=== PATIENT | female | born 1935 | race Caucasian/White ===

== ENCOUNTER 2017-07-18 08:57 | Emergency (ER) | payer OTHER ==
[2017-07-18] MEDS ORDERED: NS 500 ML IV ONE (09:42)
--- NOTE | 2017-07-18 09:42 | EDPHY ---
HPI/HX/ROS/PE/MDM - Data Points Imaging: Discussed imaging studies w/ call center professional Radiologist Narrative: CHIEF COMPLAINT: Fall HISTORY OF PRESENT ILLNESS: This patient is a non-anticoagulated 81 year old female with history of Alzheimer's arriving via EMS from [facility] for evaluation of an unwitnessed fall with possible loss of consciousness, found this morning around 8:30am. She does nor remember her fall or any precipitating factors. Her pony trimmer at bedside states that when staff called her for breakfast, they found her on the floor in the bathroom, awake. The patient was fatigued yesterday and wanted to nap, but this is normal for her. Her pony trimmer states she has had a little trouble ambulating over the last 1.5 weeks. She generally walks with a cane. The patient endorses a headache. No numbness tingling, weakness in arms or legs. No vomiting, diarrhea, chills, cough ,fever , abdominal pain, chest pain, shortness of breath. She denies history of UTIs. Her pony trimmer does not note any cognitive deficits beyond the ordinary. HPI partially obtained from pony trimmer at bedside. REVIEW OF SYSTEMS: Obtained from patient, she has a history of dementia. Negative other than headache. PAST MEDICAL HISTORY: Dementia, Diabetes type II, GERD, Hypertension, history of c-difficile. 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 VITAL SIGNS: Reviewed by me GENERAL: Well-developed, well-nourished, resting comfortably in no respiratory distress. HEENT: 2cm linear vertical laceration to right forehead. Eyes: No icterus, no injection. Mouth: moist mucous membranes. No erythema or lesions. Neck: Low c- spine tenderness. LUNGS: Clear to auscultation bilaterally, no wheezes, rhonchi or rales. CARDIAC: Regular rate and rhythm, no rubs, murmurs or gallops. ABDOMEN: Soft, nontender, nondistended, bowel sounds normal. BACK: No CVA tenderness. EXTREMITIES: No trauma. No edema. Range of motion is normal throughout. NEURO: Alert and oriented, CN 2-12 intact, motor normal, sensory normal. SKIN: Warm and dry, no rash. PSYCHIATRIC: Normal mentation, no agitation. (Beth Benson) ED Course: Patient will be placed in a c-collar. Plan for CT head and cervical spine. Plan for labs including CBC, BMP, Troponin, and UA. 10:[address] Mccoy, radiologist. No acute findings noted on CT head or cervical spine. Plan to repair laceration. See procedure note by Namita Ellington PA-C. UA shows evidence of urinary tract infection. Plan to discharge home in good condition with prescription for Keflex. (Beth Benson) MDM: Procedure: Laceration repair with tissue adhesive Verbal consent was obtained from the patient. The 3 cm laceration on the frontal region. The wound was scrubbed and explored to its base with a gloved finger. No foreign body seen, no foreign bodies palpated. There were no deep structures involved. The wound was repaired with tissue adhesive. The procedure was performed by myself. Patient has been informed that scarring will occur, although every effort has been made to minimize this. Patient developed nausea after smelling the derma lima and was subsequently given Zofran (Alex Ellington) - Data Points Laboratory Results: Laboratory Results 07/18/17 10:10 07/18/17 04:49 Medications Given: Discontinued Medications Cephalexin HCl (Keflex) 500 mg PO EDNOW ONE PRN Reason: Protocol Stop: 07/18/17 12:43 Last Admin: 07/18/17 13:00 Dose: 500 mg Sodium Chloride (Ns) 500 mls @ 1,000 mls/hr IV EDNOW ONE PRN Reason: Protocol Stop: 07/18/17 10:11 Last Admin: 07/18/17 10:15 Dose: 500 mls Ondansetron HCl (Zofran) 4 mg IVP EDNOW ONE Stop: 07/18/17 12:10 Last Admin: 07/18/17 12:28 Dose: Not Given General Time Seen by Provider: 07/18/17 09:23 Initial Vital Signs: Initial Vital Signs Temperature (C) 36.7 C 07/18/17 09:00 Heart Rate 82 07/18/17 09:00 Respiratory Rate 16 07/18/17 09:00 Blood Pressure 182/104 H 07/18/17 09:00 O2 Sat (%) 97 07/18/17 09:00 O2 Delivery Mode Room Air Allergies/Adverse Reactions: No Known Allergies Allergy (Unverified 07/18/17 09:20) Home Medications: Medication Instructions Recorded Anastrozole 07/18/17 Aspirin 81mg (*) 07/18/17 Cephalexin [Keflex (RX)] 500 mg PO TID 6 Days cap 07/18/17 Docusate Sodium 07/18/17 Losartan Potassium 07/18/17 Metformin HCl 07/18/17 Omeprazole 07/18/17 Vitamin D3 07/18/17 celeCOXIB 07/18/17 Departure - Departure Disposition: Home, Routine, Self-Care Clinical Impression: Laceration Urinary tract infection Qualifiers: Urinary tract infection type: acute cystitis Hematuria presence: without hematuria Qualified Code(s): N30.00 - Acute cystitis without hematuria Condition: Good Instructions: Laceration (ED), Skin Adhesive Care (ED), Urinary Traction Infection in Older Adults (ED) Additional Instructions: Please take antibiotics as directed. Do not put antibiotic cream on the laceration on her forehead. That will dissolve the skin glue. The skin glue will come off on its own after several days. Please follow the directions for skin adhesive care. Okay to use Tylenol or ibuprofen as needed for headache or neck pain. Referrals: Patient,NotPresent [Unknown] - As per Instructions Rois Subramanian MD [Medical Doctor] - As per Instructions Prescriptions: Cephalexin [Keflex (RX)] 500 mg PO TID 6 Days cap Report Scribed for: Beth Benson Report Scribed by: Yeimy Butts Date of Report: 07/18/17 Time of Report: 12:38 Physician Review and Approval Statement: Portions of this note were transcribed by a ophthalmic medical assistant. I personally performed a history, physical exam, medical decision making, and confirmed accuracy of information the transcribed note.
--- NOTE | 2017-07-18 10:09 | CPEKG ---
Heart Rate: 82 RR Interval: 732 P-R Interval: 156 QRSD Interval: 132 QT Interval: 416 QTC Interval: 486 P [place]: 55 QRS [place]: -30 T Wave [place]: 106 EKG Severity - ABNORMAL ECG - EKG Impression: SINUS RHYTHM EKG Impression: PROBABLE LEFT ATRIAL ABNORMALITY EKG Impression: LEFT BUNDLE BRANCH BLOCK Electronically Signed By: Beth Benson 18-Jul-2017 15:51:49
[2017-07-18 10:21] LABS: % IMMATURE GRANULYOCYTES 0.2 % (0.0-1.1); ABSOLUTE IMMATURE GRANULOCYTES 0.02 10^3/uL (0.00-0.10); ADD DIFF? NO; ADD MORPH? NO; ADD SCAN? NO; ATYPICAL LYMPHOCYTE FLAG 0 (0-99); FRAGMENT RBC FLAG 0 (0-99); HEMATOCRIT 42.8 % (38.0-47.0); HEMOGLOBIN 14.5 g/dL (12.6-16.3); LEFT SHIFT FLG 0 (0-99); LIPEMIA HEMOLYSIS FLAG 90 (0-99); MEAN CELL HEMOGLOBIN 30.9 pg (27.9-34.1); MEAN CELL HEMOGLOBIN CONCENTR. 33.9 g/dL (32.4-36.7); MEAN CELL VOLUME 91.1 fL (81.5-99.8); MEAN PLATELET VOLUME 10.3 fL (8.7-11.7); PLATELET CLUMPS FLAG 0 (0-99); PLATELET COUNT 182 10^3/uL (150-400)
[2017-07-18 10:36] LABS: ANION GAP 16 mEq/L (8-16); CALCIUM 10.2 mg/dL (8.5-10.4); CARBON DIOXIDE 22 mEq/l (22-31); CHLORIDE 105 mEq/L (97-110); CREATININE 0.9 mg/dL (0.6-1.0); GLOMERULAR FILTRATION RATE 60; GLUCOSE 156 mg/dL (70-100); SODIUM 143 mEq/L (134-144)
[2017-07-18 10:48] LABS: TROPONIN I < 0.012 ng/mL (0.000-0.034)
[2017-07-18 11:44] LABS: COLOR YELLOW; LEUKOCYTE ESTERASE,URINE TRACE (NEGATIVE); NITRITE,URINE POSITIVE (NEGATIVE)
[2017-07-18 11:51] LABS: BACTERIA 1+ /hpf (NONE SEEN); WBC,URINE 15-25 /hpf (0-3)
[2017-07-18 11:53] VITALS: BP 177/97; RESP 18; TEMP 97.5
[2017-07-18] MEDS ORDERED: SKIN ADHESIVE (DERMABOND) 1 EACH TP ONE (12:04)
[2017-07-18] MEDS ORDERED: ONDANSETRON 4 MG/2 ML VIAL IVP ONE (12:09)
[2017-07-18] MEDS ORDERED: CEPHALEXIN 500 MG CAP PO ONE (12:42)
[2017-07-18 13:17] VITALS: PULSE 90; O2SAT 97
== END 2017-07-18 13:17 | disposition home or self-care (01) ==
PROC: 0HQ1XZZ Repair Face Skin, External Approach (ICD-10-PCS; principal; 2017-07-18)
DX: S01.81XA Laceration without foreign body of other part of head, initial encounter (principal); W18.30XA Fall on same level, unspecified, initial encounter; Y92.002 Bathroom of unspecified non-institutional (private) residence as the place of occurrence of the external cause; Y99.8 Other external cause status; N30.00 Acute cystitis without hematuria; E11.9 Type 2 diabetes mellitus without complications; I10 Essential (primary) hypertension; E86.9 Volume depletion, unspecified; B96.20 Unspecified Escherichia coli [E. coli] as the cause of diseases classified elsewhere; Z79.82 Long term (current) use of aspirin; Z79.84 Long term (current) use of oral hypoglycemic drugs
CPT/HCPCS: J2405

== ENCOUNTER 2017-08-20 10:21 | Emergency (ER) | payer OTHER ==
[2017-08-20 10:35] VITALS: TEMP 97.5
--- NOTE | 2017-08-20 10:58 | EDPHY ---
H & P Stated Complaint: fall, found down Time Seen by Provider: 08/20/17 10:56 HPI/ROS: CHIEF COMPLAINT: Fall, found down HISTORY OF PRESENT ILLNESS: This patient is a non-anticoagulated 81 y/o female with history of dementia arriving via EMS [place] [facility] [place] being found down with abrasions to her right side of her face. Per EMS report, the time of her fall is unknown, unknown loss of consciousness. She knows her name at baseline, but is generally not oriented to place or time. The patient is not sure what happened or how she arrived here. She denies headache, but states she "hurts all over". She endorses generalized weakness. No recent illness. REVIEW OF SYSTEMS: A 10 point review of systems was completed, is limited due to the patient's dementia. - Medical/Surgical History PMH: 1. Dementia 2. History of cancer (left mastectomy, oral chemotherapy) 3. Type II Diabetes Mellitus 4. Hypertension 5. GERD 6. 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 Nonsmoker. - Physical Exam Exam: General Appearance: Alert, pleasant, well-appearing Head: Abrasion and contusion to the right forehead and underneath right eye. Eyes: Pupils equal and round, no conjunctival pallor or injection ENT, Mouth: Mucous membranes moist Neck: Normal inspection, nontender, range of motion without pain Respiratory: Lungs are clear to auscultation, no chest wall tenderness Cardiovascular: Regular rate and rhythm Gastrointestinal: Abdomen is soft and non-tender Neurological: Alert, oriented to person, nonfocal exam Skin: Warm and dry, no rash Extremities: Nontender, no pedal edema Psychiatric: Mood and affect normal Constitutional: Initial Vital Signs Temperature (C) 36.4 C 08/20/17 10:32 Heart Rate 74 08/20/17 10:32 Respiratory Rate 18 08/20/17 10:32 Blood Pressure 160/78 H 08/20/17 10:32 O2 Sat (%) 95 08/20/17 10:32 O2 Delivery Mode Room Air Allergies/Adverse Reactions: No Known Allergies Allergy (Verified 08/20/17 10:29) Home Medications: Medication Instructions Recorded Anastrozole 07/18/17 Aspirin 81mg (*) 07/18/17 Cephalexin [Keflex (RX)] 500 mg PO TID 6 Days cap 07/18/17 Docusate Sodium 07/18/17 Losartan Potassium 07/18/17 Metformin HCl 07/18/17 Omeprazole 07/18/17 Vitamin D3 07/18/17 celeCOXIB 07/18/17 Anastrozole 08/20/17 Aspirin 81mg (*) 08/20/17 Cefdinir [Omnicef (*)] 300 mg PO BID #10 cap 08/20/17 Medical Decision Making - Diagnostics Imaging Results: Imaging Impressions Head CT 08/20/17 11:07 Impression: 1. Moderate atrophy. 2. No acute hemorrhage, hydrocephalus, or mass effect. 3. Cerebrovascular atherosclerosis. 4. No definite acute infarct. 5. Moderate microvascular ischemic gliosis. 6. No skull fracture or epidural/subdural hematoma. Findings and recommendations discussed with Emergency Department physician, Magalis Charles at 11:45 hours on August 20, 2017. Final report concurs with initial preliminary interpretation. ED Course/Re-evaluation: This patient presents after a fall with a facial contusion. She has baseline severe dementia and isn't able to provide any clinical history. She had a similar presentation in July 2017 and had a urinary tract infection at that time. CT scan of the brain ordered to rule out intracranial hemorrhage. No other injuries on physical exam. Cath urinalysis reveals recurrent urinary tract infection. Prior urine culture reviewed and reveals pansensitive E coli. I will place her on Omnicef. Differential Diagnosis: Differential diagnosis includes though not limited to ICH, fracture, pneumonia, pyelonephritis, UTI, hyponatremia. - Data Points Laboratory Results: Laboratory Results 08/20/17 10:58 08/20/17 10:58 08/20/17 08/20/17 08/20/17 13:45 10:58 10:58 WBC 11.98 10^3/uL H 10^3/uL (3.80-9.50) RBC 4.83 10^6/uL 10^6/uL (4.18-5.33) Hgb 14.9 g/dL g/dL (12.6-16.3) Hct 43.8 % % (38.0-47.0) MCV 90.7 fL fL (81.5-99.8) MCH 30.8 pg pg (27.9-34.1) MCHC 34.0 g/dL g/dL (32.4-36.7) RDW 12.9 % % (11.5-15.2) Plt Count 273 10^3/uL 10^3/uL (150-400) MPV 10.6 fL fL (8.7-11.7) Neut % (Auto) 83.4 % H % (39.3-74.2) Lymph % (Auto) 10.7 % L % (15.0-45.0) [place] % (Auto) 4.3 % L % (4.5-13.0) Eos % (Auto) 0.8 % % (0.6-7.6) Baso % (Auto) 0.4 % % (0.3-1.7) Nucleat RBC Rel Count 0.0 % % (0.0-0.2) Absolute Neuts (auto) 9.98 10^3/uL H 10^3/uL (1.70-6.50) Absolute Lymphs (auto) 1.28 10^3/uL 10^3/uL (1.00-3.00) Absolute Monos (auto) 0.52 10^3/uL 10^3/uL (0.30-0.80) Absolute Eos (auto) 0.10 10^3/uL 10^3/uL (0.03-0.40) Absolute Basos (auto) 0.05 10^3/uL 10^3/uL (0.02-0.10) Absolute Nucleated RBC 0.00 10^3/uL 10^3/uL (0-0.01) Immature Gran % 0.4 % % (0.0-1.1) Immature Gran # 0.05 10^3/uL 10^3/uL (0.00-0.10) Sodium 142 mEq/L mEq/L (134-144) Potassium 4.1 mEq/L mEq/L (3.5-5.2) Chloride 103 mEq/L mEq/L (97-110) Carbon Dioxide 22 mEq/l mEq/l (22-31) Anion Gap 17 mEq/L H mEq/L (8-16) BUN 17 mg/dL mg/dL (7-23) Creatinine 0.9 mg/dL mg/dL (0.6-1.0) Estimated GFR 60 Glucose 128 mg/dL H mg/dL (70-100) Calcium 10.3 mg/dL mg/dL (8.5-10.4) Urine Color YELLOW Urine Appearance CLEAR Urine pH 5.0 (5.0-7.5) Ur Specific [place] 1.018 (1.002-1.030) Urine Protein 1+ H (NEGATIVE) Urine Ketones TRACE H (NEGATIVE) Urine Blood 1+ H (NEGATIVE) Urine Nitrate POSITIVE H (NEGATIVE) Urine Bilirubin NEGATIVE (NEGATIVE) Urine Urobilinogen NEGATIVE EU EU (0.2-1.0) Ur Leukocyte Esterase NEGATIVE (NEGATIVE) Urine RBC 1-3 /hpf /hpf (0-3) Urine WBC 5-10 /hpf H /hpf (0-3) Ur Epithelial Cells NONE SEEN /lpf /lpf (NONE-1+) Amorphous Sediment PRESENT /hpf /hpf (NONE-1+) Urine Bacteria 1+ /hpf H /hpf (NONE SEEN) Urine Mucus TRACE /lpf /lpf (NONE-1+) Urine Glucose NEGATIVE (NEGATIVE) Departure - Departure Disposition: Home, Routine, Self-Care Clinical Impression: Urinary tract infection Qualifiers: Urinary tract infection type: acute cystitis Hematuria presence: without hematuria Qualified Code(s): N30.00 - Acute cystitis without hematuria Head injury Qualifiers: Encounter type: initial encounter Qualified Code(s): S09.90XA - Unspecified injury of head, initial encounter Condition: Good Instructions: Urinary Traction Infection in Older Adults (ED), Concussion (ED) Additional Instructions: Follow-up with your physician in 2-3 days. Report Scribed for: Magalis Charles Report Scribed by: Yeimy Butts Date of Report: 08/20/17 Time of Report: 11:14 Physician Review and Approval Statement: 08/20/17 11:14 Portions of this note were transcribed by a biomedical equipment specialist. I personally performed a history, physical exam, medical decision making, and confirmed accuracy of information the transcribed note.
[2017-08-20 11:26] LABS: % IMMATURE GRANULYOCYTES 0.4 % (0.0-1.1); ABSOLUTE IMMATURE GRANULOCYTES 0.05 10^3/uL (0.00-0.10); ADD DIFF? NO; ADD MORPH? NO; ADD SCAN? NO; ATYPICAL LYMPHOCYTE FLAG 0 (0-99); FRAGMENT RBC FLAG 0 (0-99); HEMATOCRIT 43.8 % (38.0-47.0); HEMOGLOBIN 14.9 g/dL (12.6-16.3); LEFT SHIFT FLG 0 (0-99); LIPEMIA HEMOLYSIS FLAG 90 (0-99); MEAN CELL HEMOGLOBIN 30.8 pg (27.9-34.1); MEAN CELL VOLUME 90.7 fL (81.5-99.8); MEAN PLATELET VOLUME 10.6 fL (8.7-11.7); PLATELET CLUMPS FLAG 10 (0-99); PLATELET COUNT 273 10^3/uL (150-400); RED BLOOD CELL COUNT 4.83 10^6/uL (4.18-5.33); RED CELL DISTRIBUTION WIDTH 12.9 % (11.5-15.2)
[2017-08-20 11:39] LABS: ANION GAP 17 mEq/L (8-16); CALCIUM 10.3 mg/dL (8.5-10.4); CARBON DIOXIDE 22 mEq/l (22-31); CHLORIDE 103 mEq/L (97-110); CREATININE 0.9 mg/dL (0.6-1.0); GLOMERULAR FILTRATION RATE 60; GLUCOSE 128 mg/dL (70-100); POTASSIUM 4.1 mEq/L (3.5-5.2); SODIUM 142 mEq/L (134-144)
[2017-08-20] MEDS ORDERED: IBUPROFEN 600 MG TAB PO ONE (12:14)
[2017-08-20 14:01] LABS: COLOR YELLOW; LEUKOCYTE ESTERASE,URINE NEGATIVE (NEGATIVE); NITRITE,URINE POSITIVE (NEGATIVE)
[2017-08-20 14:06] LABS: AMORPHOUS PRESENT /hpf (NONE-1+); BACTERIA 1+ /hpf (NONE SEEN); MUCUS TRACE /lpf (NONE-1+)
[2017-08-20] MEDS ORDERED: CEFDINIR 300 MG CAP PO ONE (14:13)
[2017-08-20 16:05] VITALS: BP 161/92; PULSE 91; RESP 16; O2SAT 96
== END 2017-08-20 16:01 | disposition home or self-care (01) ==
LOC: EDUNIT#
PROC: 0T9B70Z Drainage of Bladder with Drainage Device, Via Natural or Artificial Opening (ICD-10-PCS; principal; 2017-08-20)
DX: S09.90XA Unspecified injury of head, initial encounter (principal); N30.00 Acute cystitis without hematuria; E11.9 Type 2 diabetes mellitus without complications; I10 Essential (primary) hypertension; B96.20 Unspecified Escherichia coli [E. coli] as the cause of diseases classified elsewhere; Z85.3 Personal history of malignant neoplasm of breast; Z79.82 Long term (current) use of aspirin; Z79.84 Long term (current) use of oral hypoglycemic drugs; W19.XXXA Unspecified fall, initial encounter; Y99.8 Other external cause status
CPT/HCPCS: 82947-QW

== ENCOUNTER 2018-02-15 20:30 | Inpatient (IN) | payer OTHER ==
--- NOTE | 2018-02-15 20:40 | CPEKG ---
Heart Rate: 91 RR Interval: 659 P-R Interval: 188 QRSD Interval: 140 QT Interval: 412 QTC Interval: 508 P [place]: 70 QRS [place]: 19 T Wave [place]: 143 EKG Severity - ABNORMAL ECG - EKG Impression: SINUS RHYTHM EKG Impression: LEFT BUNDLE BRANCH BLOCK Electronically Signed By: Magalis Charles 15-Feb-2018 23:17:49
[2018-02-15 21:29] LABS: PLATELET COUNT 179 10^3/uL (150-400)
--- NOTE | 2018-02-15 21:30 | EDPHY ---
General Time Seen by Provider: 02/15/18 21:22 Narrative: CHIEF COMPLAINT: Fall, hip pain, head laceration HISTORY OF PRESENT ILLNESS: Patient presents from retirement with reportedly unwitnessed fall. The patient has no recollection of this, nor does she have any complaints at rest. She does not know she fell. There is no family at bedside to augment the history. I have been told by nursing staff that she fell and there are no other specifics known. She was reportedly complaining of hip pain and laceration to the scalp prior to arrival to hospital. At this time she has no recollection of this. She appears to be in no acute distress. C-collar is in place and she is lying supine. No other history obtainable directly from the patient. Per chart review she does reside at the retirement for cognitive impairment, with history of GERD, hypertension, diabetes. No other associated complaints or modifying factors obtainable REVIEW OF SYSTEMS: Ten systems reviewed and are negative unless otherwise noted in the HPI PCP: Unknown SPECIALISTS: Unknown PAST MEDICAL HISTORY: Cognitive impairment, hypertension, GERD, diabetes PAST SURGICAL HISTORY: Unknown SOCIAL HISTORY: Resides in a retirement FAMILY HISTORY: Unknown EXAMINATION General Appearance: Alert, no distress Head: normocephalic, scalp laceration as below. Eyes: Pupils equal and round, no conjunctival pallor or injection ENT, Mouth: Mucous membranes moist Neck: C-collar in place. Normal anterior inspection. No crepitus. Midline trachea. Respiratory: Lungs are clear to auscultation. No wheeze, rhonchi or crackles Cardiovascular: Regular rate. Symmetric DP and PT pulses 2+. Gastrointestinal: Abdomen is soft and nontender. No tympany. No distention. No rigidity. No guarding. Back: non-tender, no bony abnormalities. No obvious signs of trauma. Neurological: Alert to person and place. Disoriented to time and scenario. Strength symmetric in the upper extremities at 5/5 with hairspring studder strength and wrist strength. Strength is 5/5 with ankle strength symmetrically. Skin: Warm and dry, no rash. Scalp laceration: Extremities: Tenderness of the left greater trochanter and hip. Unable to range her hip due to pain. Range of motion of the ankle symmetric. Unable to range her knee due to pain in the left hip. Range of motion upper extremities is symmetric. Psychiatric: Mood and affect normal DIFFERENTIAL DIAGNOSES: Including but not limited to hip fracture, strain, intracranial hemorrhage, closed head injury, concussion, scalp laceration MDM: 9:20 p.m. Reportedly unwitnessed fall at the retirement with a left hip fracture. Patient does have dementia and has no recollection of the fall. She is awake and denies any pain but does have an obvious his fracture on plain film the left femoral neck. I have ordered CT scan of the head and CT scan of the cervical spine. Chest x-ray has been ordered due to fall with hip fracture. The patient will require admission to the hospital and I have paged orthopedics for consultation. 9:40 p.m. Case discussed with hospitalist Dr. Roberts 9:43 p.m. Case discussed with orthopedist Dr. Mckeon. The tentatively plans for surgical intervention in the morning. Will need further information from family and/or power of banking attorney. 9:55 p.m. CK is negative, CBC within normal limits, chemistries unremarkable with mild hyperglycemia, and she is a diabetic patient. CT scans are pending. 10:05 p.m. Notified by radiologist. CT scans reveal chronic changes but no obvious acute abnormality. I have re-evaluated the patient and cleared her C-collar following this information. She has no complaints of weakness, paresthesia or anesthesia in the upper extremities or lower extremities with range of motion of the neck. 10:45 p.m. Scalp laceration is matted with dry blood, thus we will clean this further re- evaluate for the possibility of closure. UA reveals evidence of UTI, thus I have ordered urine culture and IV Rocephin. Charge nurse has contacted the patient's son who was the power of banking attorney notifying him of the scenario, including possibility of surgery in the morning. 11:00 p.m. Scalp laceration has been closed with 2 lucila. Good hemostasis. Bacitracin applied. At this time she has been admitted to the hospitalist service with orthopedic consultation and plan for a left hip surgery tomorrow morning. She does have evidence of urinary tract infection, thus we are treating with Rocephin. She has baseline cognitive impairment but is in no acute distress with vital signs stable. Chest x-ray is unremarkable for any trauma. Laboratory studies unremarkable. She is admitted stable condition. PROCEDURE: Laceration repair Consent: Verbal Location: Scalp Length of repair: 1.5 cm Complexity: Simple Layer involvement: Single Anesthesia: Local per 1% lidocaine plain. 3 mL Irrigation: Extensive Debridement: None Procedure description: Following good anesthesia, the wound was copiously irrigated. Wound bed was explored with a sterile glove, and there is no foreign body noted. Wound borders were approximated well with good hemostasis. Tolerated well without complication. Suture/Staple material: 2 Lucila Wound care: Routine as discussed Suture/Staple removal: 10 Days SUPERVISION: Patient was independently examined, but I discussed the case with my primary supervising physician Dr. Charles. - Diagnostics Imaging Results: Imaging Impressions Hip X-Ray 02/15/18 20:42 Impression: Angulated left femoral neck fracture. Cervical Spine CT 02/15/18 21:29 Impression: 1. Extensive multilevel features of cervical degenerative disk disease, similar to prior examination. No acute fracture identified. Results called to Jim Romero PA-C, at 10:[address] 02/15/18 21:29 Impression: Stable noncontrast CT examination of the brain. Results called to. Jim Romero PA-C at the time of the interpretation. Chest X-Ray 02/15/18 21:32 Impression: Negative presurgical portable chest x-ray. - History Smoking Status: Never smoked - Objective Vital Signs: Initial Vital Signs Temperature (C) 98.2 F 02/15/18 20:38 Heart Rate 96 02/15/18 20:38 Respiratory Rate 20 02/15/18 20:38 Blood Pressure 142/107 H 02/15/18 20:38 O2 Sat (%) 97 02/15/18 20:38 O2 Delivery Mode Room Air Allergies/Adverse Reactions: No Known Allergies Allergy (Verified 02/15/18 20:38) Home Medications: Medication Instructions Recorded Anastrozole [Arimidex 1 mg (*)] 1 mg PO DAILY@17 02/15/18 Aspirin EC [Aspirin EC 81 mg (*)] 81 mg PO DAILY 02/15/18 Cholecalciferol Vit D3 [Vitamin D3 1,000 units PO DAILY 02/15/18 (*)] [place] [T-Gel] 1 jose TP TH@1500 02/15/18 Docusate Sodium [Colace 100 MG (*)] 100 mg PO BID 02/15/18 Herbals/Supplements -Info Only 1 ea PO DAILY 02/15/18 Losartan Potassium [Cozaar 50 mg 50 mg PO DAILY@17 02/15/18 (*)] Methenamine Melissa [Hiprex 1 gm (*)] 1 gm PO BID 02/15/18 Omeprazole 20 mg PO DAILY 02/15/18 celeCOXIB [CeleBREX] 100 mg PO DAILY 02/15/18 metFORMIN HCL [Glucophage 500 mg 500 mg PO BIDMEAL 02/15/18 (*)] Laboratory Results: Laboratory Results 02/15/18 21:00 02/15/18 21:00 02/15/18 02/15/18 02/15/18 21:00 21:00 21:00 WBC 9.71 10^3/uL H 10^3/uL (3.80-9.50) RBC 4.28 10^6/uL 10^6/uL (4.18-5.33) Hgb 13.2 g/dL g/dL (12.6-16.3) Hct 39.8 % % (38.0-47.0) MCV 93.0 fL fL (81.5-99.8) MCH 30.8 pg pg (27.9-34.1) MCHC 33.2 g/dL g/dL (32.4-36.7) RDW 13.2 % % (11.5-15.2) Plt Count 179 10^3/uL 10^3/uL (150-400) MPV 11.1 fL fL (8.7-11.7) Neut % (Auto) 72.8 % % (39.3-74.2) Lymph % (Auto) 17.7 % % (15.0-45.0) [place] % (Auto) 5.3 % % (4.5-13.0) Eos % (Auto) 3.2 % % (0.6-7.6) Baso % (Auto) 0.6 % % (0.3-1.7) Nucleat RBC Rel Count 0.0 % % (0.0-0.2) Absolute Neuts (auto) 7.07 10^3/uL H 10^3/uL (1.70-6.50) Absolute Lymphs (auto) 1.72 10^3/uL 10^3/uL (1.00-3.00) Absolute Monos (auto) 0.51 10^3/uL 10^3/uL (0.30-0.80) Absolute Eos (auto) 0.31 10^3/uL 10^3/uL (0.03-0.40) Absolute Basos (auto) 0.06 10^3/uL 10^3/uL (0.02-0.10) Absolute Nucleated RBC 0.00 10^3/uL 10^3/uL (0-0.01) Immature Gran % 0.4 % % (0.0-1.1) Immature Gran # 0.04 10^3/uL 10^3/uL (0.00-0.10) PT 13.3 SEC SEC (12.0-15.0) INR 0.99 (0.83-1.16) APTT 26.9 SEC SEC (23.0-38.0) Sodium 143 mEq/L mEq/L (135-145) Potassium 4.4 mEq/L mEq/L (3.5-5.2) Chloride 108 mEq/L mEq/L (97-110) Carbon Dioxide 22 mEq/l mEq/l (22-31) Anion Gap 13 mEq/L mEq/L (8-16) BUN 31 mg/dL H mg/dL (7-23) Creatinine 1.0 mg/dL mg/dL (0.6-1.0) Estimated GFR 53 Glucose 137 mg/dL H mg/dL (70-100) Calcium 9.7 mg/dL mg/dL (8.5-10.4) Creatine Kinase 52 IU/L IU/L (0-156) Medications Given: Ceftriaxone Sodium/Dextrose (Rocephin 1 Gm (Premix)) 50 mls @ 100 mls/hr IV EDNOW ONE PRN Reason: Protocol Stop: 02/15/18 23:18 Last Admin: 02/15/18 22:55 Dose: 50 mls Departure - Departure Disposition: [facility] Inpatient Acute Clinical Impression: Left displaced femoral neck fracture Scalp laceration Qualifiers: Encounter type: initial encounter Qualified Code(s): S01.01XA - Laceration without foreign body of scalp, initial encounter Urinary tract infection Qualifiers: Urinary tract infection type: site unspecified Hematuria presence: without hematuria Qualified Code(s): N39.0 - Urinary tract infection, site not specified Condition: Good
[2018-02-15 21:34] LABS: INR 0.99 (0.83-1.16); PROTIME(PATIENT) 13.3 SEC (12.0-15.0)
[2018-02-15 21:42] LABS: CREATINE KINASE 52 IU/L (0-156)
[2018-02-15] MEDS ORDERED: ONDANSETRON DISINTEGRATING 4 MG TAB PO PRN (22:05)
[2018-02-15] MEDS ORDERED: ONDANSETRON 4 MG/2 ML VIAL IVP PRN (22:05)
--- NOTE | 2018-02-15 22:31 | PDGENHP ---
History and Physical - Chief Complaint Fall - History of Present Illness 82 yo F w/ advanced dementia presents after a fall. Per prison staff, patient suffered an unwitnessed fall. At the time she was complaining of L hip pain. Patient has advanced dementia and does not recall this. At the time of my evaluation patient is denying complaints, including L hip pain. She is A&Ox1 currently and in no acute distress. History Information - Allergies/Home Medication List Allergies/Adverse Reactions: No Known Allergies Allergy (Verified 02/15/18 20:38) I have personally reviewed and updated: family history, medical history - Past Medical History dementia - Family History Additional family history: Asked, denies - Social History Smoking Status: Never smoked Review of Systems Review of Systems: ROS: 10pt was reviewed & negative except for what was stated in HPI & below Physical Exam Physical Exam: Temp Pulse Resp BP Pulse Ox 36.8 C 94 18 169/95 H 98 02/15/18 22:19 02/15/18 22:19 02/15/18 22:19 02/15/18 22:19 02/15/18 22:19 Constitutional: no apparent distress, not in pain Eyes: PERRL, EOMI Ears, Nose, Mouth, Throat: moist mucous membranes, no oral mucosal ulcers Cardiovascular: regular rate and rhythym, no murmur, rub, or gallop Gastrointestinal: normoactive bowel sounds, soft, non-tender abdomen Skin: warm, normal color Neurologic: sensation intact bilaterally, other (A&Ox1) Psychiatric: poor insight, poor memory Lab Data & Imaging Review 02/15/18 21:00 02/15/18 21:00 WBC 9.71 10^3/uL (3.80-9.50) H 02/15/18 21:00 RBC 4.28 10^6/uL (4.18-5.33) 02/15/18 21:00 Hgb 13.2 g/dL (12.6-16.3) 02/15/18 21:00 Hct 39.8 % (38.0-47.0) 02/15/18 21:00 MCV 93.0 fL (81.5-99.8) 02/15/18 21:00 MCH 30.8 pg (27.9-34.1) 02/15/18 21:00 MCHC 33.2 g/dL (32.4-36.7) 02/15/18 21:00 RDW 13.2 % (11.5-15.2) 02/15/18 21:00 Plt Count 179 10^3/uL (150-400) 02/15/18 21:00 MPV 11.1 fL (8.7-11.7) 02/15/18 21:00 Neut % (Auto) 72.8 % (39.3-74.2) 02/15/18 21:00 Lymph % (Auto) 17.7 % (15.0-45.0) 02/15/18 21:00 [place] % (Auto) 5.3 % (4.5-13.0) 02/15/18 21:00 Eos % (Auto) 3.2 % (0.6-7.6) 02/15/18 21:00 Baso % (Auto) 0.6 % (0.3-1.7) 02/15/18 21:00 Nucleat RBC Rel Count 0.0 % (0.0-0.2) 02/15/18 21:00 Absolute Neuts (auto) 7.07 10^3/uL (1.70-6.50) H 02/15/18 21:00 Absolute Lymphs (auto) 1.72 10^3/uL (1.00-3.00) 02/15/18 21:00 Absolute Monos (auto) 0.51 10^3/uL (0.30-0.80) 02/15/18 21:00 Absolute Eos (auto) 0.31 10^3/uL (0.03-0.40) 02/15/18 21:00 Absolute Basos (auto) 0.06 10^3/uL (0.02-0.10) 02/15/18 21:00 Absolute Nucleated RBC 0.00 10^3/uL (0-0.01) 02/15/18 21:00 Immature Gran % 0.4 % (0.0-1.1) 02/15/18 21:00 Immature Gran # 0.04 10^3/uL (0.00-0.10) 02/15/18 21:00 PT 13.3 SEC (12.0-15.0) 02/15/18 21:00 INR 0.99 (0.83-1.16) 02/15/18 21:00 APTT 26.9 SEC (23.0-38.0) 02/15/18 21:00 Sodium 143 mEq/L (135-145) 02/15/18 21:00 Potassium 4.4 mEq/L (3.5-5.2) 02/15/18 21:00 Chloride 108 mEq/L (97-110) 02/15/18 21:00 Carbon Dioxide 22 mEq/l (22-31) 02/15/18 21:00 Anion Gap 13 mEq/L (8-16) 02/15/18 21:00 BUN 31 mg/dL (7-23) H 02/15/18 21:00 Creatinine 1.0 mg/dL (0.6-1.0) 02/15/18 21:00 Estimated GFR 53 02/15/18 21:00 Glucose 137 mg/dL (70-100) H 02/15/18 21:00 Calcium 9.7 mg/dL (8.5-10.4) 02/15/18 21:00 Creatine Kinase 52 IU/L (0-156) 02/15/18 21:00 Imaging Review: Imaging Impressions Hip X-Ray 02/15/18 20:42 Impression: Angulated left femoral neck fracture. Cervical Spine CT 02/15/18 21:29 Impression: 1. Extensive multilevel features of cervical degenerative disk disease, similar to prior examination. No acute fracture identified. Results called to Jim Romero PA-C, at 10:[address] 02/15/18 21:29 Impression: Stable noncontrast CT examination of the brain. Results called to. Jim Romero PA-C at the time of the interpretation. Chest X-Ray 02/15/18 21:32 Impression: Negative presurgical portable chest x-ray. Assessment & Plan Assessment: 82 yo F w/ advanced dementia presents w/ L hip fracture after a fall. Plan: 1. Angulated left femoral neck fracture - After an unwitnessed fall at her prison. Patient currently denying symptoms, although this is complicated by significant dementia. - Orthopedic service consulted, appreciate assistance - Conservative pain management with APAP for now noting high risk of delirium and minimal pain complaints at this time 2. Advanced dementia - Patient is A&Ox1 on my examination. A message was left for son and daughter in law regarding patient's hospitalization. Diet - NPO Code - Full per MOST form Ppx - SCDs Dispo - Admit under observation status
[2018-02-15] MEDS: ACETAMINOPHEN 325 MG TAB PO PRN (23:00)
[2018-02-16 05:27] LABS: PLATELET COUNT 162 10^3/uL (150-400)
[2018-02-16] MEDS: ACETAMINOPHEN 325 MG TAB PO PRN (06:08)
[2018-02-16] MEDS: LR 1,000 ML IV SCH (07:55)
[2018-02-16] MEDS: HYDROmorphone HCL/NS 0.5 MG/ML SYR IVP PRN ×2 (09:39→11:47)
--- NOTE | 2018-02-16 11:05 | HOSPPROG ---
Hospitalist Progress Note Assessment/Plan: 82 yo F w/ advanced dementia presents w/ L hip fracture after a fall. First encounter, chart reviewed. D/W RN. Plan: 1. Angulated left femoral neck fracture - - After an unwitnessed fall at her halfway. Patient currently denying symptoms, although this is complicated by significant dementia. - Orthopedic service consulted, await recs - Conservative pain management with APAP for now noting high risk of delirium and minimal pain complaints at this time 2. Advanced dementia - - Patient is A&Ox1 on my examination. Diet - NPO Code - Full per MOST form Ppx - SCDs Dispo - Change to inpt status await ortho input and recs Subjective: No complaints. Confused. No specific issues. Objective: Vital Signs Temp Pulse Resp BP Pulse Ox 36.7 C 85 16 150/84 H 92 02/16/18 08:30 02/16/18 08:30 02/16/18 08:30 02/16/18 08:30 02/16/18 08:30 Laboratory Results 02/16/18 04:17 02/16/18 04:17 02/15/18 02/16/18 02/17/18 05:59 05:59 05:59 Intake Total 0 Balance 0 PT 13.3 SEC (12.0-15.0) 02/15/18 21:00 INR 0.99 (0.83-1.16) 02/15/18 21:00 - Physical Exam Constitutional: appears nourished, not in pain, chronically ill appearing Eyes: PERRL, anicteric sclera, EOMI Ears, Nose, Mouth, Throat: moist mucous membranes, hearing normal, ears appear normal Cardiovascular: regular rate and rhythym, No JVD, No edema Respiratory: no respiratory distress, no rales or rhonchi, clear to auscultation Gastrointestinal: normoactive bowel sounds, No tenderness, No ascites Skin: warm, normal color, No mottled Musculoskeletal: pain with ROM, generalized weakness, No normal joint ROM Neurologic: No AAOx3 Psychiatric: not anxious, poor insight, poor judgement, poor memory ICD10 Worksheet Patient Problems: Problems Problem Status Onset Urinary tract infection Acute Laceration Acute Left displaced femoral neck fracture Acute Scalp laceration Acute
--- NOTE | 2018-02-16 11:35 | PDMN ---
Medical Necessity Medical necessity: C/M review: est. > 2 MN LOS for eval and TX for acute angulated left femoral neck fracture requiring planned Orthopedic consult and recommendations, ongoing conservative pain management with APAP noting high risk of delirium, supportive care, comorbid unwitnessed fall at half-way prior to this admission, advanced dementia per 02/16/2018 Hospitalist progress note.
[2018-02-16] MEDS ORDERED: THROMBIN (BOVINE) 5,000 UNIT VIAL TP ONE (14:57)
[2018-02-16] MEDS ORDERED: CALCIUM CHLORIDE 1 GM/10 ML INJ ONE (14:57)
[2018-02-16] MEDS ORDERED: BUPIVACAINE/EPI 0.5% 30 ML SDV ONE (14:57)
[2018-02-16] MEDS ORDERED: POLYMYXIN B SULFATE 500,000 UNIT/10 ML SYR IRR ONE (14:58)
[2018-02-16] MEDS ORDERED: BACITRACIN 50,000 UNITS/10 ML SYR IRR ONE (14:58)
[2018-02-16] MEDS ORDERED: ACETAMINOPHEN 500 MG TAB PO ONE (15:35)
[2018-02-16] MEDS ORDERED: PREGABALIN 150 MG CAP PO ONE (15:35)
[2018-02-16] MEDS ORDERED: ROPIVACAINE 0.2% 80 MG, EPINEPHrine 0.2 MG, KETOROLAC TROMETHAMINE 30 MG, morphINE 10 M... IU ONE (15:35)
[2018-02-16] MEDS ORDERED: TRANEXAMIC ACID 3,000 MG in NS (SYRINGE) 50 ML IRR ONE (15:35)
[2018-02-16] MEDS ORDERED: ceFAZolin 2 GM/SWFI 2 GM/20 ML SYR IVP ONE (15:35)
[2018-02-16] MEDS ORDERED: PROPOFOL 200 MG/20 ML VIAL ONE (15:43)
[2018-02-16] MEDS ORDERED: ROCURONIUM 50 MG/5 ML VIAL ONE (15:46)
[2018-02-16] MEDS ORDERED: ONDANSETRON 4 MG/2 ML VIAL ONE (15:46)
[2018-02-16] MEDS ORDERED: BUPI/epINEPH/KETOROLAC/morphINE IU ONE (16:00)
[2018-02-16] MEDS ORDERED: PHENYLEPHRINE HCL 100 MCG/ML SYR ONE (16:00)
[2018-02-16] MEDS ORDERED: NALOXONE HCL 0.4 MG/ML INJ IVP PRN (16:10)
[2018-02-16] MEDS ORDERED: ALBUTEROL 3 ML DEYVIAL IH PRN (16:10)
[2018-02-16] MEDS ORDERED: ONDANSETRON 4 MG/2 ML VIAL IVP PRN (16:10)
[2018-02-16] MEDS ORDERED: fentaNYL 100 MCG/2 ML INJ IVP PRN (16:10)
--- NOTE | 2018-02-16 16:10 | PDANEPAE ---
ANE History of Present Illness L Hip Hemiarthroplasty ANE Past Medical History - Cardiovascular History Hx Hypertension: No Hx Arrhythmias: Yes Hx Coronary Artery / Peripheral Vascular Disease: Yes - Pulmonary History Hx Oxygen in Use at Home: No Hx Sleep Apnea: No Sleep Apnea Screening Result - Last Documented: Negative - Endocrine History Hx Diabetes: Yes ANE Review of Systems Review of Systems: - Exercise capacity Exercise capacity: limited by disability ANE Patient History - Allergies Allergies/Adverse Reactions: No Known Allergies Allergy (Verified 02/15/18 20:38) - Home Medications Home Medications: Anastrozole [Arimidex 1 mg (*)] 1 mg PO DAILY@17 02/15/18 [Last Taken 02/15/18] Aspirin EC [Aspirin EC 81 mg (*)] 81 mg PO DAILY 02/15/18 [Last Taken 02/15/18] Cholecalciferol Vit D3 [Vitamin D3 (*)] 1,000 units PO DAILY 02/15/18 [Last Taken 02/15/18] [place] Tar [T-Gel] 1 jose TP TH@1500 02/15/18 [Last Taken 02/13/18] Docusate Sodium [Colace 100 MG (*)] 100 mg PO BID 02/15/18 [Last Taken 02/15/18 17:00] Herbals/Supplements -Info Only 1 ea PO DAILY 02/15/18 [Last Taken 02/15/18] Losartan Potassium [Cozaar 50 mg (*)] 50 mg PO DAILY@17 02/15/18 [Last Taken 05/28] Methenamine Melissa [Hiprex 1 gm (*)] 1 gm PO BID 02/15/18 [Last Taken 02/15/18 17: 00] Omeprazole 20 mg PO DAILY 02/15/18 [Last Taken 02/15/18] celeCOXIB [CeleBREX] 100 mg PO DAILY 02/15/18 [Last Taken 02/15/18] metFORMIN HCL [Glucophage 500 mg (*)] 500 mg PO BIDMEAL 02/15/18 [Last Taken 05/28 17:00] - NPO status NPO Since - Liquids (Date): 02/16/18 NPO Since - Liquids (Time): 00:00 NPO Since - Solids (Date): 02/16/18 NPO Since - Solids (Time): 00:00 - Smoking Hx Smoking Status: Never smoked ANE Labs/Vital Signs - Labs Result Diagrams: 02/16/18 04:17 02/16/18 04:17 - Vital Signs Blood Pressure: 159/75 Heart Rate: 84 Respiratory Rate: 15 O2 Sat (%): 92 Weight: 62.8 kg ANE Physical Exam - Airway Neck exam: FROM Mallampati Score: Class 2 Mouth exam: normal dental/mouth exam - Pulmonary Pulmonary: clear to auscultation - Cardiovascular Cardiovascular: regular rate and rhythym - ASA Status ASA Status: III ANE Anesthesia Plan Anesthesia Plan: general endotracheal anesthesia
[2018-02-16] MEDS ORDERED: fentaNYL 100 MCG/2 ML INJ ONE (16:19)
[2018-02-16] MEDS ORDERED: HYDROCODONE/APAP 5/325 TAB PO PRN (17:33)
--- NOTE | 2018-02-16 17:33 | POSTOPPROG ---
Post Op Note Date of Operation: 02/16/18 Surgeon: Zuleyka Mckeon Anesthesiologist: isac Anesthesia: GET(General Endotracheal) Pre-op Diagnosis: l hip fx Procedure: l hip silver-arthrolplasty with fluoro Inf/Abcess present in the surg proc area at time of surgery?: No Depth: Deep Incisional (Fascial) EBL: 100-500
--- NOTE | 2018-02-16 17:34 | POSTANESTH ---
Post Anesthetic Evaluation Cardiovascular Status: Normal, Stable Respiratory Status: Normal, Stable Level of Consciousness/Mental Status: Mildly Sleepy, Arousable Pain Control: Adequate, Prn Tx Ordered Nausea/Vomiting Control: Adequate, Prn Tx Ordered Complications Possibly Related to Anesthesia: None Noted
[2018-02-16] MEDS ORDERED: TAPENTADOL HCL 50 MG TAB PO PRN (17:36)
[2018-02-16] MEDS: ANASTROZOLE 1 MG TAB PO SCH ×2 (18:20→18:34)
[2018-02-16] MEDS: traMADol 50 MG TAB PO SCH (18:32)
[2018-02-16] MEDS: LOSARTAN POTASSIUM 50 MG TAB PO SCH (18:33)
[2018-02-16] MEDS: METHENAMINE HIPP 1 GM TAB PO SCH (23:33)
[2018-02-16] MEDS: DOCUSATE SODIUM 100 MG CAP PO SCH (23:33)
[2018-02-17] MEDS: traMADol 50 MG TAB PO SCH ×6 (01:43→20:23)
[2018-02-17] MEDS: LR 1,000 ML IV SCH (06:35)
[2018-02-17] MEDS: HYDROmorphone HCL/NS 0.5 MG/ML SYR IVP PRN (06:44)
[2018-02-17] MEDS: ACETAMINOPHEN 325 MG TAB PO PRN ×2 (07:43→14:17)
[2018-02-17] MEDS: METHENAMINE HIPP 1 GM TAB PO SCH ×2 (07:46→20:24)
[2018-02-17] MEDS: CHOLECALCIFEROL VIT D3 1,000 UNITS TAB PO SCH (07:46)
[2018-02-17] MEDS: PANTOPRAZOLE SODIUM 40 MG TAB PO SCH (07:46)
[2018-02-17] MEDS: DOCUSATE SODIUM 100 MG CAP PO SCH ×2 (07:47→20:32)
[2018-02-17] MEDS ORDERED: NON-FORMULARY NEW DRUG (Omeprazole [Omeprazole] 20 MG) PO SCH (09:00)
--- NOTE | 2018-02-17 11:40 | HOSPPROG ---
Hospitalist Progress Note Assessment/Plan: # L hip fracture s/p WILLIAM by Dr Mckeon - working with PT - received dilaudid IV for pain control # dementia - resides in care home - at risk for delirium # DM - holding metformin # LBBB - chronic # htn - cont losartan # dvt ppx - lovenox Subjective: denies pain or other complaints Objective: Vital Signs Temp Pulse Resp BP Pulse Ox 36.8 C 88 16 140/71 H 94 02/17/18 07:26 02/17/18 07:26 02/17/18 07:26 02/17/18 07:26 02/17/18 07:26 Laboratory Results 02/16/18 04:17 02/16/18 04:17 02/16/18 02/17/18 02/18/18 05:59 05:59 05:59 Intake Total 0 507 320 Balance 0 507 320 PT 13.3 SEC (12.0-15.0) 02/15/18 21:00 INR 0.99 (0.83-1.16) 02/15/18 21:00 chart reviewed ECG personally reviewed hip XR reviewed - Physical Exam Constitutional: no apparent distress, appears nourished Cardiovascular: regular rate and rhythym, no murmur, rub, or gallop Respiratory: no respiratory distress, no rales or rhonchi Gastrointestinal: soft, non-tender abdomen, no palpable masses Musculoskeletal: other (motor intact in L foot) ICD10 Worksheet Patient Problems: Problems Problem Status Onset Urinary tract infection Acute Laceration Acute Left displaced femoral neck fracture Acute Scalp laceration Acute
--- NOTE | 2018-02-17 13:45 | GCON ---
[f rep st] CONSULTATION INPATIENT CONSULTATION DATE OF CONSULTATION: 02/16/2018 CHIEF COMPLAINT: Left hip pain. HISTORY OF PRESENT ILLNESS: The patient is an 82-year-old female with significant dementia who appar ently fell at her living accommodations, was unable to ambulate afterwards, was seen emergency room a nd diagnosed with a left femoral neck fracture. I was asked to see the patient for further evaluatio n. PHYSICAL EXAMINATION: The patient has pain to log roll but otherwise is comfortable in bed. She is not communicative although she does nod when asked if she has some pain. STUDIES: X-ray exam reveals a displaced femoral neck fracture in the subcapital region. ASSESSMENT AND PLAN: Patient is status post left subcapital femoral neck fracture. We will attempt to get a hold of her medical power of cloak room attendant and see whether or not they would like to have her und ergo surgery or not. /[id number]/MODL
[2018-02-17] MEDS: ENOXAPARIN 40 MG/0.4 ML SYR SC SCH (14:15)
--- NOTE | 2018-02-17 14:21 | ASMTCMCOM ---
CM Note CM Note Notes: PT/OT rec SNF. Spoke with pt son who is traveling back into town today and will be back in [place] by this evening. Pt son agreeable to referrals to SNF, [facility] accepts pt, [facility] pending, [facility] no bed availability. CM to follow. Date Signed: 02/17/2018 02:20 PM Electronically Signed By:ELIE Francis
--- NOTE | 2018-02-17 14:40 | GOP ---
[f rep st] OPERATIVE REPORT DATE OF OPERATION: 02/16/2018 SURGEON: Zuleyka Mckeon MD ANESTHESIA: Endotracheal intubation. PREOPERATIVE DIAGNOSIS: Left femoral neck fracture. POSTOPERATIVE DIAGNOSIS: Left femoral neck fracture. PROCEDURE PERFORMED: Left hip hemiarthroplasty with fluoroscopy. FINDINGS: INDICATIONS: This is an 82-year-old female, who fell at her living accommodations, was unable to amb ulate. X-ray exam reveals a displaced femoral neck fracture. Her medical power of corporate associate attorney gives h is consent to do a left hip hemiarthroplasty. DESCRIPTION OF PROCEDURE: Patient brought to the operating room after the left side had been identif ied as the correct side by the nurse and physician. Once in the operating room, she was placed under general anesthesia using endotracheal intubation. Once asleep, she was placed on the fracture table with a well-padded peroneal post and both legs placed in appropriate leg stark. Fluoroscopy was us ed to ensure proper positioning of the pelvis. Once positioned correctly, the arch table was locked into place. The left hip and flank were then sterilely prepped and draped in the usual fashion using LORENA solution. Once prepped and draped, a linear incision was made starting 2 cm lateral and inferio r to the ASIS and heading in a 15-degree posterior direction, with sharp dissection carried down thro ugh the skin and subcutaneous layers, with bleeding controlled using electrocautery. The fascia over lying the TFL was incised in line with its fibers, with the muscle belly retracted laterally. Deeper dissection was carried into the base of the fascial sheath and the circumflex vessels were cauterize d. Deeper dissection was carried down onto the hip capsule, with the Cobra retractor placed outside the capsule in the superior and inferior portions, and a Hohmann retractor placed on the anterior por tion of the acetabulum. The entire anterior capsule was then removed. Oscillating saw was used to c ut across the intertrochanteric line. The remainder of the head and neck were removed and all bony d ebris was removed from the actual acetabulum after it was thoroughly irrigated. Several trials were placed within the acetabulum; noted that a 48 mm head seemed to fit best. Therefore, attention was t hen turned to the femoral neck, which was externally rotated at 90 degrees. Soft tissue dissection w as done to the anterior and superior portion of the femoral neck. Once achieving adequate capsular r elease, the leg was able to be placed in extension and abduction. Multiple broaches were placed in t he femoral neck after the superior femoral neck had been excised. Noted that a size 6 seemed to fit best. A trial reduction was performed, noted to have good fill of the proximal femur, as well as goo d lengthening. Therefore, the hip was redislocated, placed in extension and abduction, and a size 6 Accolade II, 132-degree neck, was put into place with a 26 minus 3 femoral head and a 26 x 48 bipolar component head. The hip was then re-reduced and noted to fit securely. Joint cocktail was injected in the posterior capsule in the anterior portion of the acetabulum with tranexamic acid irrigated th rough the wound. The wound was then closed in layers to include 0 Vicryl suture for the fascial laye r overlying the TFL, 0 Vicryl and 2-0 Vicryl suture for the subcutaneous layers, and jillian for the skin. The wound was dressed with Xeroform, 4 x 4, and Tegaderm. She was completely undraped in the operating room, had both legs taken from appropriate leg stark. The peroneal post was removed. Her leg lengths were noted to be equal. She was then woken up, extubated, transferred onto a bed, and s ent to recovery room in good condition. /[id number]/MODL
[2018-02-17] MEDS: LOSARTAN POTASSIUM 50 MG TAB PO SCH ×4 (17:26→20:22)
[2018-02-17] MEDS: ANASTROZOLE 1 MG TAB PO SCH ×3 (17:28→20:18)
[2018-02-18] MEDS: traMADol 50 MG TAB PO SCH ×4 (01:50→17:56)
[2018-02-18] MEDS: DOCUSATE SODIUM 100 MG CAP PO SCH ×2 (09:42→20:01)
[2018-02-18] MEDS: PANTOPRAZOLE SODIUM 40 MG TAB PO SCH (09:42)
[2018-02-18] MEDS: ENOXAPARIN 40 MG/0.4 ML SYR SC SCH (09:42)
[2018-02-18] MEDS: METHENAMINE HIPP 1 GM TAB PO SCH ×2 (09:43→20:00)
[2018-02-18] MEDS: CHOLECALCIFEROL VIT D3 1,000 UNITS TAB PO SCH (09:45)
--- NOTE | 2018-02-18 12:11 | SOAPPROG ---
SOAP Progress Note Assessment/Plan: Assessment: Plan: - will follow, possible d/c tomorrow if meet PT goals 02/18/18 12:11 Subjective: doing well, pain improved, better function today, can WB Objective: Vital Signs Temp Pulse Resp BP Pulse Ox 36.9 C 77 16 122/64 H 92 02/18/18 07:43 02/18/18 07:43 02/18/18 07:43 02/18/18 07:43 02/18/18 07:43 Microbiology 02/15/18 22:15 Urine Culture - Final Urine,Catheterized Escherichia Coli Laboratory Results 02/16/18 04:17 02/16/18 04:17 02/17/18 02/18/18 02/19/18 05:59 05:59 05:59 Intake Total 507 1770 Balance 507 1770 PT 13.3 SEC (12.0-15.0) 02/15/18 21:00 INR 0.99 (0.83-1.16) 02/15/18 21:00 dressing cdi, calf NT, nvi distally, no dvt - Time Spent With Patient Time Spent With Patient: 10 - Pending Discharge Pending Discharge Within 24 Hours: No Pending Discharge Within 48 Hours: No ICD10 Worksheet Patient Problems: Problems Problem Status Onset Left displaced femoral neck fracture Acute Scalp laceration Acute Urinary tract infection Acute Laceration Acute
--- NOTE | 2018-02-18 15:47 | HOSPPROG ---
Hospitalist Progress Note Assessment/Plan: # L hip fracture s/p WILLIAM by Dr Mckeon - working with PT - received dilaudid IV for pain control # dementia - resides in correction - at risk for delirium # DM - holding metformin # LBBB - chronic # htn - cont losartan # dvt ppx - lovenox - would continue for 21 days # dispo - to SNF; possibly tomorrow per ortho Subjective: no clinical change; no acute events per RN Objective: Vital Signs Temp Pulse Resp BP Pulse Ox 37.0 C 81 16 114/87 H 95 02/18/18 12:00 02/18/18 12:00 02/18/18 12:00 02/18/18 12:00 02/18/18 12:00 Microbiology 02/15/18 22:15 Urine Culture - Final Urine,Catheterized Escherichia Coli Laboratory Results 02/16/18 04:17 02/16/18 04:17 18 02/18/18 02/19/18 05:59 05:59 05:59 Intake Total 507 1770 Balance 507 1770 PT 13.3 SEC (12.0-15.0) 02/15/18 21:00 INR 0.99 (0.83-1.16) 02/15/18 21:00 - Physical Exam Constitutional: no apparent distress, appears nourished Eyes: anicteric sclera Ears, Nose, Mouth, Throat: hearing normal Cardiovascular: No edema Respiratory: no respiratory distress Gastrointestinal: No distension Genitourinary: No babin in urethra Skin: warm Musculoskeletal: no muscle tenderness Neurologic: sensation intact bilaterally ICD10 Worksheet Patient Problems: Problems Problem Status Onset Urinary tract infection Acute Laceration Acute Left displaced femoral neck fracture Acute Scalp laceration Acute
--- NOTE | 2018-02-18 16:18 | ASMTCMCOM ---
CM Note CM Note Notes: Pt accepted at [facility] and [facility] SNFs, pt family first choice is [facility]. [facility] declines pt due to dementia and [facility] no bed availability. D/c plan of care: [facility] SNF when medically stable. Date Signed: 02/18/2018 04:18 PM Electronically Signed By:ELIE Francis
[2018-02-18] MEDS: LOSARTAN POTASSIUM 50 MG TAB PO SCH (17:56)
[2018-02-18] MEDS: ANASTROZOLE 1 MG TAB PO SCH (17:57)
[2018-02-18] MEDS: CEPHALEXIN 500 MG CAP PO SCH (22:05)
[2018-02-19] MEDS: traMADol 50 MG TAB PO SCH ×2 (03:17→06:18)
[2018-02-19 08:15] VITALS: BP 138/72
[2018-02-19] MEDS: METHENAMINE HIPP 1 GM TAB PO SCH (08:42)
[2018-02-19] MEDS: ENOXAPARIN 40 MG/0.4 ML SYR SC SCH (08:42)
[2018-02-19] MEDS: DOCUSATE SODIUM 100 MG CAP PO SCH (08:42)
[2018-02-19] MEDS: CEPHALEXIN 500 MG CAP PO SCH (08:43)
[2018-02-19] MEDS: CHOLECALCIFEROL VIT D3 1,000 UNITS TAB PO SCH (08:43)
[2018-02-19] MEDS: PANTOPRAZOLE SODIUM 40 MG TAB PO SCH (08:43)
--- NOTE | 2018-02-19 09:10 | PDIAF ---
- Diagnosis Diagnosis: hip fx Code Status: Full Code - Medication Management Discharge Medications: Medications to Continue on Transfer Anastrozole [Arimidex 1 mg (*)] 1 mg PO DAILY@17 02/15/18 [Last Taken 02/15/18] Aspirin EC [Aspirin EC 81 mg (*)] 81 mg PO DAILY 02/15/18 [Last Taken 02/15/18] Cholecalciferol Vit D3 [Vitamin D3 (*)] 1,000 units PO DAILY 02/15/18 [Last Taken 02/15/18] [place] Tar [T-Gel] 1 jose TP TH@1500 02/15/18 [Last Taken 02/13/18] Docusate Sodium [Colace 100 MG (*)] 100 mg PO BID 02/15/18 [Last Taken 02/15/18 17:00] Herbals/Supplements -Info Only 1 ea PO DAILY 02/15/18 [Last Taken 02/15/18] Losartan Potassium [Cozaar 50 mg (*)] 50 mg PO DAILY@17 02/15/18 [Last Taken 05/28] Methenamine Melissa [Hiprex 1 gm (*)] 1 gm PO BID 02/15/18 [Last Taken 02/15/18 17: 00] Omeprazole 20 mg PO DAILY 02/15/18 [Last Taken 02/15/18] metFORMIN HCL [Glucophage 500 mg (*)] 500 mg PO BIDMEAL 02/15/18 [Last Taken 05/28 17:00] Enoxaparin [Lovenox 40 MG (*)] 40 mg SC DAILY #21 syr 02/18/18 [Last Taken Unknown] traMADol [Ultram 50 mg (*)] 50 mg PO Q6HRS #30 tab 02/18/18 [Last Taken Unknown] Discharge Medications: Refer to the Discharge Home Medication list for PRN reason. PICC Care - Routine: N/A - Orders Services needed: Registered Nurse, Physical Therapy, Occupational Therapy Isolation Type: None Diet Recommendation: no restrictions on diet - Follow Up Care Current Providers and Referrals: Patient,NotPresent [Primary Care Provider] - As per Instructions
--- NOTE | 2018-02-19 09:54 | SOAPPROG ---
SOAP Progress Note Assessment/Plan: Assessment: Plan: - can d/c from ortho perspective, WBAT 02/18/18 12:11 02/19/18 09:54 Subjective: Doing well, speaking today, responding to commands, minimal hip pain. Objective: Vital Signs Temp Pulse Resp BP Pulse Ox 37.9 C 82 16 138/72 H 94 02/19/18 08:00 02/19/18 08:00 02/19/18 08:00 02/19/18 08:00 02/19/18 08:00 Microbiology 02/15/18 22:15 Urine Culture - Final Urine,Catheterized Escherichia Coli Laboratory Results 02/16/18 04:17 02/16/18 04:17 02/18/18 02/19/18 02/20/18 05:59 05:59 05:59 Intake Total 1770 400 Output Total 300 Balance 1770 100 PT 13.3 SEC (12.0-15.0) 02/15/18 21:00 INR 0.99 (0.83-1.16) 02/15/18 21:00 dressing cdi, compartments soft, nvi distally - Time Spent With Patient Time Spent With Patient: 5 - Pending Discharge Pending Discharge Within 24 Hours: Yes Pending Discharge Within 48 Hours: No Pending Discharge Date: 02/20/18 Pending Discharge Time: 11:00 ICD10 Worksheet Patient Problems: Problems Problem Status Onset Left displaced femoral neck fracture Acute Scalp laceration Acute Urinary tract infection Acute Laceration Acute
--- NOTE | 2018-02-19 12:23 | ASDISCHSUM ---
Discharge Information Plan Status:SNF Medically Cleared to Leave: Discharge Date:02/19/2018 10:54 AM CM D/C Disposition:Jail Facility ADT D/C Disposition:Jail Facility Projected Discharge Date:02/18/2018 11:00 AM Transportation at D/C:ALS/BLS Discharge Delay Reason: Follow-Up Date:02/18/2018 11:00 AM Discharge Slot: Final Diagnosis: Placement Information Referral Type:*Care Home/SNF Referral ID:[id number] Provider Name:[facility]//[facility] Address 1:[address] [place] [address] Address 2: City:[place] Selection Factors: State:[place] Patient Contact Information Contact Name:CHERRIE Relationship:Son Address:[address] [facility] Work Phone: City:[place] Alternate Phone: [facility]/Zip Code:[place] [address] Email: Financial Information Financial Class:Medicare Primary Plan Desc:MEDICARE INPATIENT Primary Plan Number:[id number] Secondary Plan Desc: Secondary Plan Number: Assessment Information [facility] CM Progress Note CM Note CM Note Notes: PT/OT rec SNF. Spoke with pt son who is traveling back into [facility] today and will be back in [place] by this evening. Pt son agreeable to referrals to SNF, [facility] accepts pt, [facility] and [facility] pending, [facility] no bed availability. CM to follow. Date Signed: 02/17/2018 02:20 PM Electronically Signed By:ELIE Francis [facility] CM Progress Note CM Note CM Note Notes: Pt accepted at [facility] and [facility] SNFs, pt family first choice is [facility]. [facility] declines pt due to dementia and [facility] has no bed availability. D/c plan of care: [facility] SNF when medically stable. Date Signed: 02/18/2018 04:18 PM Electronically Signed By:ELIE Francis Intervention Information Intervention Type:*IM-Signed Date of Service:02/19/2018 11:33 AM Patient Type:Inpatient Staff Member:Susana Mcnamara Hours: Discipline: Severity: Comment:
--- NOTE | 2018-02-19 18:01 | GDS ---
[f rep st] DISCHARGE SUMMARY DISCHARGE DIAGNOSES: 1. Left hip fracture. 2. Severe dementia. 3. Diabetes mellitus. 4. Left bundle branch block. 5. Hypertension. 6. Possible urinary tract infection. CONSULTATIONS: Dr. Mckeon of Orthopedics. PHYSICAL EXAM: GENERAL: The patient is alert. VITAL SIGNS: Afebrile at 37.9, pulse 82, respirator y rate 16, blood pressure is 138/72. She is saturating 94% on room air. I have seen and evaluated t he patient on the day of discharge. HOSPITAL COURSE: The patient is an 82-year-old female brought to the hospital after suffering an unw itnessed fall. She was evaluated and diagnosed with: 1. Right hip fracture. During this hospitalization, received surgical intervention performed by Dr. Mckeon. The patient is tolerating this procedure well. She had a total hip arthroplasty. Will requi re continued physical therapy and occupational therapy rehabilitation. 2. Severe dementia. The patient's mentation is at her baseline. She does reside in a residential chronically. 3. Diabetes mellitus. Will continue her previously prescribed medications. 4. Possible urinary tract infection in the setting of severe dementia. She will be treated with Kef jefferson for 5 days. 5. Hypertension. Her medications have been continued. 6. Deep venous thrombosis prophylaxis. Lovenox will be continued for 21 days. DISPOSITION: The patient will be discharged to [facility] for further rehabilitation and management. There are no pending studies. DISCHARGE MEDICATIONS: Please refer to EMR form. Again, the patient will be on Lovenox for a total of 21 days. She will continue on Ultram and Keflex for a total of 5 days. FOLLOWUP: Followup will be with the patient's primary orthopedist, Dr. Mckeon, as well as her primary care physician as needed. I spent greater than 35 minutes in the care, coordination, and management of the patient's dispositio n. /[id number]/MODL
[2018-02-20] MEDS ORDERED: COAL TAR TP SCH (15:00)
== END 2018-02-19 10:54 | DRG 470 ==
LOC: EDUNIT# → INTOOBSV 21:39 → OBSVTOIN 21:39 → F3N 23:40
PROVIDERS: ADMIT Internal Medicine; ATTEND Internal Medicine
PROC: 0HQ0XZZ Repair Scalp Skin, External Approach (ICD-10-PCS; 2018-02-15)
PROC: 0SRB0JZ Replacement of Left Hip Joint with Synthetic Substitute, Open Approach (ICD-10-PCS; principal; 2018-02-16 16:00)
DX: S72.002A Fracture of unspecified part of neck of left femur, initial encounter for closed fracture (principal); N39.0 Urinary tract infection, site not specified; S01.01XA Laceration without foreign body of scalp, initial encounter; F03.90 Unspecified dementia, unspecified severity, without behavioral disturbance, psychotic disturbance, mood disturbance, and anxiety; E11.9 Type 2 diabetes mellitus without complications; I10 Essential (primary) hypertension; I44.7 Left bundle-branch block, unspecified; B96.20 Unspecified Escherichia coli [E. coli] as the cause of diseases classified elsewhere; K21.9 Gastro-esophageal reflux disease without esophagitis; W19.XXXA Unspecified fall, initial encounter; Y92.129 Unspecified place in nursing home as the place of occurrence of the external cause
CPT/HCPCS: 97162-GP; 97166-GO; 97530-GO; 97535-GO; G0378; G8978-GP-CM; G8979-GP-CL; G8987-GO-CM; G8988-GO-CK; J0171; J0690; J0696; J1170; J1650; J1885; J2270; J2370; J2405; J2704; J2795; J3010